=== PATIENT | female | born 2000 | race Caucasian/White ===

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

== ENCOUNTER 2020-05-23 21:39 | Emergency (ER) | payer OTHER ==
[2020-05-23 21:51] VITALS: BP 133/85; PULSE 74; TEMP 99; BMI 22.1
== END 2020-05-23 22:16 | disposition home or self-care (01) ==
LOC: JERFT 21:39
DX: M79.641 Pain in right hand (principal)
CPT/HCPCS: 73130-TC-RT-FY; 99284-25

== ENCOUNTER 2020-08-13 14:19 | Emergency (ER) | payer OTHER ==
[2020-08-13 14:39] VITALS: BP 124/65; PULSE 78; TEMP 97.9; BMI 22.1
== END 2020-08-13 15:12 | disposition home or self-care (01) ==
LOC: JERFT 14:19
DX: R21 Rash and other nonspecific skin eruption (principal)
CPT/HCPCS: 99283-25